=== PATIENT | female | born 1965 | race Caucasian/White ===

== ENCOUNTER → 2017-03-03 | Outpatient (CLI) | payer OTHER ==
[~2017-03-03] MED LIST: ACETAMINOPHEN PO; BYSTOLIC10 MG PO; COZAAR100 MG PO; FIORICET 50-321 EACH PO; HYZAAR PO; IBUPROFEN PO; NORVASC; PHENERGAN PO; PROVERA10 MG PO; TOPROL XL 50 MG50 MG PO; VOLTAREN75 MG PO
--- NOTE | ~2017-03-03 | TH ---
Unit #: [id number] #: [id number] Patient: NEGAR HELLER [id number] [address] [address] [id number] O MR#: [id number] NAME: NEGAR HELLER. : 1965 SEX: F STUDY DATE/TIME: 03/03/2017 UNIT: [facility] ROOM: STUDY DESCRIPTION: Attending Physician: Kina Ponce M.D. Referring Physician: Kina Ponce M.D. Primary Care Physician: Claribel Yepez A.P.R.N. CARDIOLOGY REPORT EXAM Lexiscan Cardiolite stress test, nuclear portion. PROCEDURE Using technetium 99m labeled Cardiolite, rest and stress SPECT images were obtained. Multiple SPECT images were obtained in various views including horizontal and vertical long axis and short axis views of the left ventricle. Images were obtained by gated SPECT method. The patient was administered 10.43 mCi of Cardiolite at rest. Patient was administered 33.5 mCi of Cardiolite after Lexiscan infusion was completed. On the stress images, there is a small area of moderate decreased isotope activity in the anteroapical wall. The rest images show normal perfusion. Comparing rest and stress images, there is suspicion for stress-induced ischemia involving the anteroapical wall of the left ventricle. The left ventricular ejection fraction is calculated to be 53%. There is no focal wall motion abnormality seen. CONCLUSION 1. Suspicion for stress-induced ischemia involving the anteroapical wall of the left ventricle. 2. The left ventricular ejection fraction is calculated to be 53%. 3. There is no focal wall motion abnormality seen. 4. Abnormal Lexiscan Cardiolite stress test suspicious for coronary artery disease. Clinical correlation is requested. Dictated by... Roger Salgado TD: 03/03/2017 11:51 JOB #: [id number] Unit #: [id number] #: [id number] Patient: NEGAR HELLER CARDIOLOGY REPORT Page 1 of 1 X Kina Ponce MD <ELECTRONICALLY SIGNED> 04/09/17 1429 CARDIOLOGY REPORT
--- NOTE | ~2017-03-03 | ST ---
Unit #: [id number] #: [id number] Patient: NEGAR HELLER [id number] [address] [address] [id number] O MR#: [id number] NAME: NEGAR HELLER : 1965 SEX: F STUDY DATE/TIME: 03/03/2017 UNIT: [facility] ROOM: STUDY DESCRIPTION: Walking Lexiscan stress test Attending Physician: Kina Ponce M.D. Referring Physician: Kina Ponce M.D. Primary Care Physician: Claribel Yepez A.P.R.N. CARDIOLOGY REPORT PROCEDURE PERFORMED Walking Lexiscan Cardiolite stress test. REPORT Baseline EKG - Sinus bradycardia, heart rate 45 beats per minute, left ventricular hypertrophy, slow R wave progression. Lexiscan is a 4-minute test with Lexiscan being injected within the first minute, followed by Cardiolite. FINDINGS 1. EKG during the test showed some nonspecific ST-T wave abnormalities in inferolateral leads, some flattening of the ST segment in inferior leads. 2. The patient had no complaints of chest pain, palpitations or dizziness. Had increased shortness of breath, fatigue, some nausea and dry heaves, which resolved in recovery phase. 3. Maximum heart rate response was 103 beats per minute with a maximum blood pressure response of 172/85 mmHg. 4. Cardiolite was injected after Lexiscan within the first minute of the test. Radionuclide tests pending. Please correlate with nuclear images. Dictated by... Shahnaz Castro A.P.R.N. for Roger Salgado/vlad TD: 03/03/2017 10:49 JOB #: [id number] CARDIOLOGY REPORT Page 1 of 1 X Shahnaz Castro APRN CARDIOLOGY REPORT
== END | disposition home or self-care (01) ==
LOC: CNUC 08:02
DX: R07.9 Chest pain, unspecified (principal); I10 Essential (primary) hypertension; R00.2 Palpitations; R94.30 Abnormal result of cardiovascular function study, unspecified
CPT/HCPCS: 78452; 93017; A9500; J2785

== ENCOUNTER → 2017-03-07 | Outpatient (CLI) | payer OTHER ==
--- NOTE | ~2017-03-07 | EKG ---
PATIENT: NEGAR HELLER UNIT #: [id number] Ventricular Rate: 49 BPM Atrial Rate: 49 BPM P-R Interval: 142 ms QRS Duration: 80 ms Q-T Interval: 486 ms QTC Calculation(Bezet): 439 ms P [place]: 63 degrees Calculated R [place]: 63 degrees Calculated T [place]: 52 degrees Diagnosis Line: Marked sinus bradycardia with sinus arrhythmia Diagnosis Line: Voltage criteria for left ventricular hypertrophy Diagnosis Line: Abnormal ECG Diagnosis Line: No previous ECGs available Diagnosis Line: Confirmed by SUSHMA BARTHOLOMEW MD ([id number]) on Diagnosis Line: 03/07/2017 10:09:58 PM INTERPRETING MD: CHERIE
[2017-03-07 07:25] LABS: HEMATOCRIT 47.3 % (35.0-45.0); MEAN CELL VOLUME 94.9 FL (83-96); MEAN CORPUSCULAR HEMOGLOBIN 32.1 PG (28-34); MEAN CORPUSCULAR HGB CONC 33.9 g/dL (30-36); MEAN PLATELET VOLUME 7.7 FL (6.5-11.5); RED BLOOD COUNT 4.99 X10e (3.90-5.30); RED CELL DISTRIBUTION WIDTH 12.9 % (11.0-15.5); WHITE BLOOD COUNT 8.3 X10e3 (4.0-10.5)
[2017-03-07 07:40] LABS: PARTIAL THROMBOPLASTIN TIME 28.9 SECONDS (23.5-31.3); PROTHROMBIN TIME (PATIENT) 10.6 SECONDS (10.0-11.7)
[2017-03-07 07:47] LABS: BUN/CREATININE RATIO 22.22; CALCIUM SERUM 9.3 mg/dL (8.4-10.2); CREATININE SERUM 0.9 mg/dL (0.6-1.4); GLOM FILT RATE Estimated 73.6 mL/min (>60); POTASSIUM 4.7 mmol/L (3.5-5.1)
== END | disposition home or self-care (01) ==
LOC: CCVL 06:13 → C2C 07:43 → CCVL 07:43
PROVIDERS: Internal Medicine Interventional Cardiology
PROC: 4A023N7 Measurement of Cardiac Sampling and Pressure, Left Heart, Percutaneous Approach (ICD-10-PCS; principal; 2017-03-07)
PROC: B211YZZ Fluoroscopy of Multiple Coronary Arteries using Other Contrast (ICD-10-PCS; 2017-03-07)
PROC: B215YZZ Fluoroscopy of Left Heart using Other Contrast (ICD-10-PCS; 2017-03-07)
DX: I25.10 Atherosclerotic heart disease of native coronary artery without angina pectoris (principal); I10 Essential (primary) hypertension; F17.210 Nicotine dependence, cigarettes, uncomplicated; Z79.899 Other long term (current) drug therapy; Z80.0 Family history of malignant neoplasm of digestive organs; Z88.5 Allergy status to narcotic agent
CPT/HCPCS: 36415; 80048; 85027; 85610; 85730; 93005; C1769; C1887; C1894; J0360; J1644; J2250; J3010